=== PATIENT | male | born 1955 | race Caucasian/White ===

== ENCOUNTER 2021-07-27 08:38 | Observation (INO) ==
--- NOTE | 2021-07-06 10:53 | PAT Medication Instructions ---
Medication Instructions Date of Service July 06, 2021 Home Medications apixaban 5 mg tablet (Eliquis) 5 mg PO BID aspirin 81 mg tablet,delayed release 81 mg PO QAM atorvastatin 10 mg tablet 10 mg PO PM cholecalciferol (vitamin D3) 125 mcg (5,000 unit) tablet (Vitamin D3) 125 mcg PO QAM cyanocobalamin (vitamin B-12) 100 mcg tablet (Vitamin B-12) 100 mcg PO QAM glucosamine sulf dipot chlr,msm,chond 550 mg-C 30 mg-carrington 1 mg capsule (Glucosamine Chondroitin) 1 cap PO BID omega-3 fatty acids 1,000 mg PO QAM sotalol 160 mg tablet 80 mg PO BID ASK your prescriber and surgeon apixaban 5 mg tablet (Eliquis) 5 mg PO BID (in order for spinal or epidural anesthesia, Eliquis needs to be stopped 72 hours/3 days before surgery. Please check if okay with doctor that prescribes this to you) STOP taking 2 weeks before surgery glucosamine sulf dipot chlr,msm,chond 550 mg-C 30 mg-carrington 1 mg capsule (Glucosamine Chondroitin) 1 cap PO BID omega-3 fatty acids 1,000 mg PO QAM DO NOT take the morning of surgery cholecalciferol (vitamin D3) 125 mcg (5,000 unit) tablet (Vitamin D3) 125 mcg PO QAM cyanocobalamin (vitamin B-12) 100 mcg tablet (Vitamin B-12) 100 mcg PO QAM Take morning of surgery With a small sip of water, OTHERWISE NOTHING TO EAT OR DRINK AFTER MIDNIGHT: aspirin 81 mg tablet,delayed release 81 mg PO QAM sotalol 160 mg tablet 80 mg PO BID Take evening before surgery atorvastatin 10 mg tablet 10 mg PO PM sotalol 160 mg tablet 80 mg PO BID Other Notes If you have any questions please call us at [phone] or [phone] or [phone] or [phone]
--- NOTE | 2021-07-12 08:47 | Anesthesiology Consultation ---
Date of Service July 12, 2021 Assessment & Plan (1) Encounter for pre-operative examination: - cardiology : "...history of atrial fib/flutter who was seen by Dr. Lynch in September...2020 with increased symptoms...work-up and was put on sotalol...has not had sustained atrial arrhythmia since that time...EKG today shows sinus bradycardia VR 55 otherwise normal QTc 420 ms. Tolerating medications well, reasonably active...no evidence of atrial fib since on sotalol...heart rate is 55 and he does complain of mild fatigue however is comfortable enough and has symptoms in A. Fib. We will keep sotalol at 80 mg twice daily and continue apixaban...He should be considered low risk for upcoming knee replacement surgery..." - Outpatient joint assessment: Patient is currently scheduled for inpatient pathway. If re-evaluated pending system levels during current pandemic/surgeon requests outpatient pathway, patient expressed would be staying overnight. - foot sensitivity: pt reports sensitivity to feet being touched, denies neur opathy/pain/injury. He states this is chronic, does fine if knows before feet are touched. Noted on OR sheet. - COVID screening: Per assessment on 07/12/2021: Travel screen negative, no known COVID-19 positive contacts or current COVID-19 related symptoms in past 2 weeks. Patient vaccinated. Surgeon arranging preop COVID testing, scheduled 07/25/2021. Awaiting results. Chart Review Chart Review: Acceptable Risk for Surgery and Patient seen in Pre Admission Testing Teaching & Discussion Pre-Anesthesia Teaching/Discussion Notes: Instructed NPO after midnight before surgery, except medications with 15 cc of water. Medication instructions provided according to the PAT guidelines. History Surgery Operation Date: 07/27/21 11:10 Proposed Procedures p Right Total Knee Arthroplasty - Maykel Muse MD Height/Weight Height: 5 ft 9 in Weight: 96.1 kg Allergies Allergy/AdvReac Type Severity Reaction Status Date / Time No Known Allergies Allergy Verified 07/06/21 09:03 Medications Home Medications Medication Instructions Recorded Confirmed Last Taken apixaban 5 mg tablet (Eliquis) 5 mg PO BID 07/06/21 07/06/21 Unknown aspirin 81 mg tablet,delayed 81 mg PO QAM 07/06/21 07/06/21 Unknown release atorvastatin 10 mg tablet 10 mg PO PM 07/06/21 07/06/21 Unknown cholecalciferol (vitamin D3) 125 125 mcg PO QAM 07/06/21 07/06/21 Unknown mcg (5,000 unit) tablet (Vitamin D3) cyanocobalamin (vitamin B-12) 100 100 mcg PO QAM 07/06/21 07/06/21 Unknown mcg tablet (Vitamin B-12) glucosamine sulf dipot 1 cap PO BID 07/06/21 07/06/21 Unknown chlr,msm,chond 550 mg-C 30 mg-carrington 1 mg capsule (Glucosamine Chondroitin) omega-3 fatty acids 1,000 mg PO QAM 07/06/21 07/06/21 Unknown sotalol 160 mg tablet 80 mg PO BID 07/06/21 07/06/21 Unknown Past Medical History Medical History A-fib on [facility]; follows with [facility] DJD (degenerative joint disease) HLD (hyperlipidemia) Osteoarthritis Scoliosis Patient denies h/o stroke, seizures, heart attack, heart failure, DM, HTN, blood clots or blood transfusions. Exercise / Class Metabolic Activity II 4-5 Yardwork/Stairs/Walk up hill (denies CP or SOB with 1 FOS) Past Family History Family History Mother Slow to wake up after anesthesia Past Surgical History Surgical History History of bunionectomy BL History of colonoscopy History of tonsillectomy S/P orchiopexy Past Anesthesia History No Hx of Anesthesia Complications and Other (mother slow to wake, did not require re-intubation) History of PONV No Hx of PONV and Hx of Motion Sickness Social History Smoking Status: Former smoker tobacco type: cigarettes and smokeless tobacco Do You Dip or Chew Tobacco: No (quit 1995) Smoking End Date: 1975 Hx Alcohol Use: Yes alcohol intake frequency: holidays/special occasions only Hx Substance Use: No substance use type: does not use Review of Systems Snoring, denies witnessed apneas or sleep studies. Occasional reflux if bent over extended time. Occasional palpitations, denies dizziness or lightheadedness. Patient denies chest pain, shortness of breath, dyspnea on exertion, fever, chills, cough, or wheezing. Physical Exam Vital Signs Vitals BP 128/78 P 55 TEMP 98.7 SP02 96% on RA RESP 17 Physical Full cervical extension range of motion without pain Full TMJ range of motion TMD 3.5 finger breaths Mallampati Score 2 Dentition: intact, one missing left upper tooth; denies missing, loose or chipped teeth, caps/crowns, implants or bridges Lungs: normal respiratory effort. Clear throughout to auscultation, no adventitious breath sounds Cardiac: regular rate and rhythm, no murmurs noted Carotid arteries: negative bruit bilat Extremities: no distal extremity edema Lab Results Anesthesia Preop Results Results Anesthesia Widget: WBC 6.01 K/uL (4.8-10.8) 07/12/21 Hgb 15.6 g/dL (14.0-18.0) 07/12/21 Hct 45.0 % (42-52) 07/12/21 Plt 209 K/uL (130-400) 07/12/21 Na 138 mmol/L (136-145) 07/12/21 K 4.2 mmol/L (3.5-5.1) 07/12/21 Cl 106 mmol/L (98-107) 07/12/21 CO2 27 mmol/L (21-32) 07/12/21 BUN 18 mg/dl (6-23) 07/12/21 Creat 0.83 mg/dl (0.6-1.4) 07/12/21 Glucose Level 101 mg/dl (70-99(Fasting)) H 07/12/21 PT 10.3 Seconds (9.0-12.0) 07/12/21 PTT 30.6 Seconds (21.0-31.0) 07/12/21 INR 1.0 (0.9-1.1) 07/12/21 Urine Color Yellow 07/12/21 Urine Appearance Clear (Clear) 07/12/21 Urine pH 5.0 (4.5-7.5) 07/12/21 Urine Specific [place] 1.019 (1.000-1.030) 07/12/21 Urine Protein Negative (Negative) 07/12/21 Urine Glucose (UA) Negative (Negative) 07/12/21 Urine Ketones Negative (Negative) 07/12/21 Urine Blood Negative (Negative) 07/12/21 Urine Nitrite Negative (Negative) 07/12/21 Urine Bilirubin Negative (Negative) 07/12/21 Urine Urobilinogen Negative (Negative) 07/12/21 Urine Leukocyte Esterase Negative (Negative) 07/12/21 Blood Type O Positive 07/12/21 Antibody Screen NEGATIVE 07/12/21 Testing Electrocardiogram Date: 07/12/21 Poor data quality Sinus bradycardia, rate 55 bpm Rightward axis Nonspecific ST and T wave abnormality Chest X-Ray Date: 07/12/21 FINDINGS: Frontal and lateral radiographs of the chest demonstrate the cardiomediastinal silhouette to be within normal limits. The lungs are clear of alveolar opacities. There is no evidence for effusion bilaterally. There is no evidence for vascular congestion. There is no acute osseous pathology. IMPRESSION: No acute cardiopulmonary disease. Echocardiogram Date: 09/09/20 Mild asymmetric septal hypertrophy EF 60-65% Moderately enlarged right ventricle Moderately dilated left atrium Mild tricuspid regurgitation Mild pulmonary hypertension estimated right ventricular/pulmonary artery systolic pressure of 34.97 mmHg Stress Test Date: 10/04/20 exercise MPHR 85% Negative for ischemia
--- NOTE | 2021-07-13 21:36 | History & Physical Report ---
Date of Service July 13, 2021 Assessment & Plan (1) Right knee DJD: Plan: Postoperative prescriptions for Percocet and Coumadin will be provided at discharge from the hospital. Anticipate discharge to home with home health services. The patient has already seen his PCP and sampler pickup for medical clearance. He has already seen the [facility] and been instructed to stop his Eliquis 3 days prior to surgery. We will restart it the morning after surgery. PDMP was checked and there are no concerning findings. The patient already has a walker and cane. Option of outpatient total joint was discussed with him. Given his cardiac history, he thinks that admission is his best option. Call with any other concerns. He has already seen PAT today for his preoperative testing. COVID-19 nasal swab prescription was provided. He will obtain this 2 days prior to surgery. He is aware of the COVID-19 risks associated with surgery. He is currently asymptomatic of any COVID-19 symptoms. History of Present Illness Chief Complaint: Right knee pain Primary Care Provider: NO PCP This 65-year-old male presents with his , for his preoperative history and physical. He is scheduled to undergo a right knee total knee arthroplasty on 07/27/2021. The patient has a longstanding history of bilateral knee pain. Right is worse than left. He is having difficulty with ambulation. Pain is worse with weightbearing. It is affecting his ADLs. He notes he has lost some motion. He is noticing a bowing to his leg that seems to be getting worse with time. No other complaints. Allergies Allergy/AdvReac Type Severity Reaction Status Date / Time No Known Allergies Allergy Verified 07/06/21 09:03 Home Medications Medication Instructions Recorded Confirmed Type apixaban 5 mg tablet (Eliquis) 5 mg PO BID 07/06/21 07/06/21 History aspirin 81 mg tablet,delayed 81 mg PO QAM 07/06/21 07/06/21 History release atorvastatin 10 mg tablet 10 mg PO PM 07/06/21 07/06/21 History cholecalciferol (vitamin D3) 125 125 mcg PO QAM 07/06/21 07/06/21 History mcg (5,000 unit) tablet (Vitamin D3) cyanocobalamin (vitamin B-12) 100 100 mcg PO QAM 07/06/21 07/06/21 History mcg tablet (Vitamin B-12) glucosamine sulf dipot 1 cap PO BID 07/06/21 07/06/21 History chlr,msm,chond 550 mg-C 30 mg-carrington 1 mg capsule (Glucosamine Chondroitin) omega-3 fatty acids 1,000 mg PO QAM 07/06/21 07/06/21 History sotalol 160 mg tablet 80 mg PO BID 07/06/21 07/06/21 History Past Med/Surg History Medical History A-fib on eliquis; follows with [facility] Cardiology DJD (degenerative joint disease) HLD (hyperlipidemia) Osteoarthritis Scoliosis Surgical History History of bunionectomy BL History of colonoscopy History of tonsillectomy S/P orchiopexy Family History (Updated 07/13/21 @ 21:32 by Omari Segovia PA-C) Mother Slow to wake up after anesthesia Other Cancer Social History (Updated 07/13/21 @ 21:35 by Omari Segovia PA-C) Smoking Status: Former smoker Second Hand Exposure: No; Hx Alcohol Use: Yes Hx Substance Use: No Preferred Language: Indian Communication Ability: Effective Supervisor Pig Machine Required: No Beliefs That Will Affect Care: None marital status: Current Living Situation: Spouse current occupational status: employed current occupation: general road supervisor Feels Safe at Home: Yes Assistive Devices: Glasses Review of Systems Review of Systems: All systems reviewed & are unremarkable except as noted in HPI & below A total of 10 systems were reviewed. Physical Exam Physical Exam: Vitals: Height 174.5 cm, weight 94.6 kilograms, BMI 31.1, temperature 36.1, BP 120/70, pulse 59, O2 sat 98% on room air, respirations 18. General: Well-developed, well-nourished, elderly white male in no acute distress. Sitting in a chair. Alert and oriented. Skin: Warm and dry with good turgor. No rashes or lesions. No ecchymosis or erythema. No intra-articular effusion in the right knee. HEENT: Normocephalic, atraumatic. Eyes: PERRLA, EOMI. Nares and oropharynx exams deferred due to COVID precautions. Heart: RRR. No MGR. Lungs: Clear to auscultation bilaterally. No crackles, rhonchi or wheezing. Good air movement. Abdomen: Bowel sounds present x4. Soft, nontender. No organomegaly. No masses. Musculoskeletal: Right knee evaluation reveals varus positioning. He has focal discomfort with palpation over the medial and lateral joint lines. He lacks about 5-8 degrees of terminal extension. Flexion to greater than 100 degrees. Strength is 5/5 with good quad tone. No defect in the patellar tendon or quadriceps tendon. Pseudolaxity of the MCL. Normal LCL. Neurologic: Gross sensation is intact across both lower extremities by soft touch. Peripheral pulses are 2+. Results & Data Results & Data ([facility]) Diagnostic Findings Radiographic imaging previously obtained shows end-stage DJD of the right knee. Medial compartment is [id number]. Joint space narrowing, periarticular osteophytes and sclerosis are all evident. Code Status & VTE Plan VTE Prophylaxis Plan VTE Prophylaxis will be ordered: Yes
--- NOTE | 2021-07-27 06:21 | History & Physical Bridge Note ---
Date of Service July 27, 2021 History & Physical Bridge Note I have examined the patient, reviewed the History & Physical and in the interval since the performance of the History & Physical I have noted the following changes of clinical significance:consent obtained/site verified/covid screen negative. no changes noted
[~2021-07-27 08:38] MED LIST: BUPIVACAINE 0.5 % 5 MG/1 ML PF 10ML VIAL ONE; LR 500ML BOLUS, THEN 15ML/HR IV SCH; LR 60ML/HR IV SCH; ROPIVACAINE 0.5% HCL/PF 150 MG, BUPIVACAINE 0.75% MPF 20 ML, EPINEPHrine 0.15 MG, Ketor... INFIL SCH; TRANEXAMIC ACID 1,000 MG x 1 **For Topical Use TOP SCH; ceFAZolin 2000MG 2,000 MG/15 ML SYR IV SCH
[2021-07-27] MEDS ORDERED: LIDOCAINE 2% 2 ML VIAL/AMP(20MG/ML) INFIL ONE (10:03)
[2021-07-27] MEDS ORDERED: PROPOFOL IV EMULSION 10 MG/ML 20 ML VIAL IV ONE (10:03)
[2021-07-27] MEDS ORDERED: MIDAZOLAM HCL 1 MG/ML 2ML VIAL ONE (10:03)
[2021-07-27] MEDS ORDERED: ONDANSETRON INJ 2 MG/ML 2 ML VIAL ONE (10:03)
[2021-07-27] MEDS ORDERED: fentaNYL citrate 100 MCG/2 ML VIAL IV PRN (10:51)
[2021-07-27] MEDS ORDERED: ONDANSETRON INJ 2 MG/ML 2 ML VIAL IV PRN ×2 (10:51→14:43)
[2021-07-27] MEDS ORDERED: ATROPINE SULFATE 0.1 MG/ML 10ML SYR IV PRN (10:51)
[2021-07-27] MEDS ORDERED: HYDROmorphone INJ 2 MG/ML SYR/VIAL IV PRN (10:51)
[2021-07-27] MEDS ORDERED: ePHEDrine sulfate 50 MG/ML AMP IV PRN (10:51)
[2021-07-27] MEDS ORDERED: ORTHO JOINT ANESTHETIC ONE (11:19)
[2021-07-27] MEDS ORDERED: KETAMINE 50 MG/5 ML SYRINGE ONE (11:40)
[2021-07-27] MEDS ORDERED: ePHEDrine sulfate 50 MG/ML AMP ONE (11:52)
--- NOTE | 2021-07-27 13:04 | Post Operative Brief Note ---
Immediate Post Op Note v1 Date of Surgery July 27, 2021 Pre & Post Diagnosis Operation Date: 07/27/21 11:10 Pre-Op Diagnosis: Degenerative Joint Disease Right Knee Post-Op Diagnosis: Degenerative Joint Disease Right Knee I identified the patient and participated in the time-out.: Yes Procedure Operation Date: 07/27/21 11:10 Actual Procedures p Right Total Knee Arthroplasty(Right) - Maykel Muse MD Surgeon Maykel Muse MD Loan Review Manager [facility] Estimated Blood Loss 75 Findings Consistent with Post-Op Diagnosis
--- NOTE | 2021-07-27 13:14 | Operative Report ---
Post Operative Report Pre & Post Diagnosis Operation Date: 07/27/21 11:10 Pre-Op Diagnosis: Degenerative Joint Disease Right Knee Post-Op Diagnosis: Degenerative Joint Disease Right Knee I identified the patient and participated in the time-out.: Yes Procedure Operation Date: 07/27/21 11:10 Actual Procedures p Right Total Knee Arthroplasty(Right) - Maykel Muse MD Surgeon CYRUS Muse MD Plumbing Contractor Juliette DE OLIVEIRA Estimated Blood Loss 75 Findings Consistent with Post-Op Diagnosis see operative report Specimens see operative report Drains none Complications none Disposition Accompanied Patient To Recovery: Yes Indications This 65-year-old male presented to the office with complaints of persisting right knee pain. He had tried conservative care measures without improvement. He elected to proceed with surgical intervention after being educated about potential risks and outcomes. Preoperative imaging was obtained. Description of Procedure Patient was administered a spinal anesthetic and then taken to the operating room where he was given sedation. He was prepped and draped in the usual sterile fashion. Please see Dr. Muse's operative report for specifics of the procedure. I was present for the entire case from initial patient positioning through final wound closure. Assistance was provided in tissue retraction, hemostasis, trial implant placement, final implant placement, and final wound closure. Patient was taken to the recovery room in satisfactory condition. I attest to the content of the Intraoperative Record and any orders documented therein. Any exceptions are noted below.
--- NOTE | 2021-07-27 13:26 | Operative Report (OR) ---
DATE OF PROCEDURE: 07/27/2021. SURGEON: Maykel Muse MD. PACKING HOUSE SUPERVISOR: Omari Segovia PA-C. No resident or fellow available. PREOPERATIVE DIAGNOSIS: Osteoarthritis, right knee, with varus flexion deformity. POSTOPERATIVE DIAGNOSIS: Osteoarthritis, right knee, with varus flexion deformity, right knee. OPERATION PERFORMED: Cemented right total knee replacement. SUMMARY OF IMPLANTS: Size 4 right femur posterior cruciate substituting, size 4 mobile bearing tray, size 41 patella, size 4 x 10 mm insert, 2 bags of Palacos G cement posterior cruciate substituting t echnique. TOURNIQUET TIME: 50 minutes. PERIOPERATIVE SITUATION: Medically cleared male with intractable knee pain, has a varus flexion defo rmity, has end-stage disease. 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 This is i n the tibia. DESCRIPTION OF PROCEDURE: The patient was appropriately identified, site verified, consent verified. Antibiotics were confirmed as being given. The right lower extremity was prepped and draped in the usual routine fashion. Tourniquet was inflated to 300 mmHg after exsanguination of the limb with a rubber Esmarch bandage for a total of 50 minutes. Midline exposure was utilized. He had an old ante romedial incision. This was not involved with this incision. Full thickness flaps raised. There wa s a defect in the capsule in that area as a result of previous incision. Parapatellar arthrotomy performed. Patella everted. Appropriate releases performed. Tibia was subl uxated, menisci resected. Cruciates resected. Tibia was subluxated. Distal femur entered. Distal femur resected 14 mm, proximal tibia 4 mm, the extension gap was excellent. Femur was then sized to between a 5 and a 4, was measured 5, cut 4. There was no notching. The flexion gap was checked, it was excellent. The box cut was then made. A size 4 fit well. Tibia was broached and reamed to a si ze 4. The area of the sclerosis from the infarct was a little bit firm, but I was able to get throug h nice and easily. Size 4 trial fit well with a 10 mm spacer, the knee was stable in full flexion, full extension and mi d range flexion. The patella tracked well. The patella was resected leaving 16 mm, size 41 trial wa s seated, it tracked well. All trial implants were then removed. The Orthomix was injected prior to that and then once all the implants were removed, the TXA was applied for 3 minutes. The wound was then irrigated and the permanent cemented in position -- tibia, femur, and patella in that order. At 12 minutes, the tourniquet was deflated. Minor bleeding points were controlled with electrocautery. Roughly 75 mL of blood loss total. The wound was then irrigated one final time. The trial spacer removed. Permanent spacer seated. Th e knee reduced and closed at 30-40 degrees of flexion with #2 Vicryl, 2-0 Vicryl and stainless steel clips. Appropriate dressing applied. The patient was transferred to recovery room in satisfactory c ondition, having tolerated the procedure well. It should be mentioned that the area of the defect in the capsule was closed with fascia. A fascial flap was created. This closed it nicely. Appropriat e dressing applied. The patient was transferred to recovery room in satisfactory condition, having t olerated the procedure well. DVT prophylaxis per protocol. Job ID: [id number]
--- NOTE | 2021-07-27 13:41 | XRay Report ---
XR knee RT 1 or 2V routine CLINICAL HISTORY: S/P R TKA COMPARISON: Knee radiographs September 29, 2020. FINDINGS: Alignment of the total right knee arthroplasty is anatomic. There is no periprosthetic fra cture or unexpected radiopaque foreign body. There are skin nanci. IMPRESSION: Expected findings following total right knee arthroplasty. ACT 112: Negative or not required by law. Electronically signed by: Nikhil Causey M.D. 07/27/2021 1:39 PM
--- NOTE | 2021-07-27 13:44 | Progress Notes ---
SUBJECTIVE: Postop check status post right total knee replacement. The patient is doing well. Tavon es chest pain, shortness of breath, fever, chills, nausea, vomiting or headache. OBJECTIVE: VITAL SIGNS: Stable. He is afebrile. Neurovascular check limited by spinal block still being in place. Postop x-rays look excellent. ASSESSMENT AND PLAN: Doing well. Continue with postoperative care pathway. Discharge home tomorrow if he does well overnight. Job ID: [id number]
--- NOTE | 2021-07-27 13:50 | Discharge Summary (DS) ---
DATE OF ADMISSION: 07/27/2021. DATE OF DISCHARGE: 07/28/2021. CHIEF COMPLAINT: Right knee pain. HISTORY OF PRESENT ILLNESS: Underwent elective right total knee replacement. Hospital course has be en uneventful to this point. Postop x-rays look excellent. Chronic pain that failed conservative management for decades. X-rays reveal end-stage disease. PREADMISSION MEDICATIONS: Include apixaban 5 mg b.i.d., aspirin 81 mg daily, atorvastatin 10 mg, vit andrews D, vitamin B, glucosamine, [place], and sotalol 80 mg b.i.d. PAST MEDICAL HISTORY/PAST SURGICAL HISTORY: Remarkable for AFib on Eliquis, DJD, hyperlipidemia, ost eoarthritis, scoliosis. History of bunionectomy, history of colonoscopies, tonsillectomy, orchiopexy. SOCIAL HISTORY: Reveals he is , former smoker. Social alcohol use. Lives with his spouse. 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 Feels safe at home. Wears glasses. REVIEW OF SYSTEMS: Reveals no chest pain, shortness of breath, fever, chills, nausea, vomiting or he adache. Postoperative x-rays look excellent. ASSESSMENT: Doing well status post right total knee replacement. Deep venous thrombosis prophylaxis with his Eliquis. He will start that 24 hours postop. Job ID: [id number]
--- NOTE | 2021-07-27 13:55 | Anesthesiology Progress Note ---
Date of Service July 27, 2021 Anesthesia Post Procedure Vital Signs Vital Signs: Temp Pulse Pulse Resp BP BP Pulse Ox 07/27/21 13:45 53 L 14 110/70 95 07/27/21 13:35 43 L 14 118/72 98 07/27/21 13:25 45 L 16 121/73 99 07/27/21 13:16 97.0 F L 49 L 12 126/75 97 07/27/21 09:18 97.5 F L 53 L 20 148/86 H 97 Pain Intensity Right Knee: Pain Intensity: 1 Transfer of Care Handoff Completed per policy Notes Mental Status: alert / awake / arousable and participated in evaluation Patient Amnestic to Procedure: Yes Nausea / Vomiting: adequately controlled Pain: adequately controlled Airway Patency, RR, SpO2: stable & adequate BP & HR: stable & adequate Hydration State: stable & adequate Neuraxial Anesthesia: was administered and sensory block is resolving Anesthetic Complications: no major complications apparent and Pt Satisfied with anesthetic care
[2021-07-27] MEDS ORDERED: MAGNESIUM HYDROXIDE SUSP 30 ML UDC PO PRN (14:43)
[2021-07-27] MEDS ORDERED: oxyCODONE HCL IR 5 MG TAB (IMMEDIATE RELEASE) PO PRN (14:43)
[2021-07-27] MEDS ORDERED: bisacodyL 10 MG SUPP PR PRN (14:43)
[2021-07-27] MEDS ORDERED: NALOXONE HCL 0.4 MG/1 ML VIAL/CARP IV PRN (14:43)
[2021-07-27] MEDS ORDERED: METOCLOPRAMIDE HCL INJ 5 MG/ML 2 ML VIAL IV PRN (14:43)
[2021-07-27] MEDS ORDERED: HYDROmorphone INJ 0.5 MG/0.5 ML SYR IV PRN (14:43)
[2021-07-27] MEDS ORDERED: ALUMINUM/MAGNESIUM SUSP 30 ML UDC PO PRN (14:43)
[2021-07-27] MEDS ORDERED: TAMSULOSIN HCL 0.4 MG CAP PO PRN (14:43)
[2021-07-27] MEDS ORDERED: diphenhydrAMINE 50 MG/ML VIAL IV PRN (14:43)
[2021-07-27] MEDS: SODIUM CHLORIDE 0.9% 1000ML 1,000 ML IV SCH (15:28)
[2021-07-27] MEDS: KETOROLAC TROMETHAMINE 15 MG/ML VIAL IV SCH ×2 (15:30→21:10)
[2021-07-27] MEDS: ACETAMINOPHEN 500 MG TAB PO SCH ×2 (15:30→20:55)
[2021-07-27] MEDS: FERROUS GLUCONATE 324 MG TAB PO SCH (20:50)
[2021-07-27] MEDS: ASCORBIC ACID 500 MG TAB PO SCH (20:51)
[2021-07-27] MEDS: APIXABAN 5 MG TABLET PO SCH (20:52)
[2021-07-27] MEDS: DOCUSATE SODIUM 100 MG CAP PO SCH (20:54)
[2021-07-27] MEDS: SOTALOL HCL 80 MG TAB PO SCH (20:54)
[2021-07-27] MEDS ORDERED: SENNA 8.6 MG TAB PO SCH (21:00)
[2021-07-27] MEDS ORDERED: ATORVASTATIN 10 MG TAB PO SCH (21:00)
[2021-07-27] MEDS: ceFAZolin 2000MG 2,000 MG/15 ML SYR IV SCH (21:10)
[2021-07-28] MEDS: KETOROLAC TROMETHAMINE 15 MG/ML VIAL IV SCH ×2 (01:32→07:52)
[2021-07-28] MEDS: SODIUM CHLORIDE 0.9% 1000ML 1,000 ML IV SCH (01:53)
[2021-07-28] MEDS: ceFAZolin 2000MG 2,000 MG/15 ML SYR IV SCH (05:07)
[2021-07-28] MEDS: ACETAMINOPHEN 500 MG TAB PO SCH (05:08)
[2021-07-28 06:25] LABS: Hematocrit (blood only) 33.2 % (42-52); Hemoglobin 11.6 g/dL (14.0-18.0); Mean Corpuscular Hemoglobin 32.8 pg (25-34); Mean Corpuscular Hgb Conc 34.9 g/dL (32-36); Mean Corpuscular Volume 93.8 fL (80-100); Mean Platelet Volume 10.5 fL (7.4-10.4); Platelet Count 170 K/uL (130-400); RDW Coefficient of Variation 12.9 % (11.5-14.5); RDW Standard Deviation 44.5 fL (36.4-46.3); Red Blood Count 3.54 M/uL (4.7-6.1); White Blood Count 11.86 K/uL (4.8-10.8)
[2021-07-28 06:45] LABS: BUN Creatinine Ratio 17.2 (10-20); Calcium 8.2 mg/dl (8.5-10.1); Creatinine Clr Calc Pharmacy 92.3 ml/min; Est GFR (African American) 103.5 ml/min; Est GFR (Non-African American) 89.3 ml/min; Potassium 4.5 mmol/L (3.5-5.1)
--- NOTE | 2021-07-28 07:13 | Progress Notes ---
SUBJECTIVE: Postop day #1 status post right total knee replacement. Did not sleep well, just based on the unfamiliar surroundings, but really did not have much complaint physically. OBJECTIVE: Vital signs are stable. He is afebrile. Neurovascular check femoral sciatic nerve is normal. Hematocrit is stable at 33. Electrolytes pending. ASSESSMENT AND PLAN: His wound is clean, dry and intact. Neurovascular check, femoral sciatic nerve is normal. Can do a straight leg raise. Can do ankle pumps. Sensation grossly normal. He is doin g well. Discharged home today after PT/OT and case management. Resume his normal atrial fibrillatio n anticoagulation. Job ID: [id number]
[2021-07-28] MEDS: FERROUS GLUCONATE 324 MG TAB PO SCH (07:48)
[2021-07-28] MEDS: DOCUSATE SODIUM 100 MG CAP PO SCH (07:48)
[2021-07-28] MEDS: SOTALOL HCL 80 MG TAB PO SCH (07:49)
[2021-07-28] MEDS: ASCORBIC ACID 500 MG TAB PO SCH (07:49)
[2021-07-28] MEDS: APIXABAN 5 MG TABLET PO SCH (07:50)
[2021-07-28] MEDS ORDERED: dexAMETHasone 10 MG in SYRINGE 0 ML IV SCH (08:00)
[2021-07-28] MEDS ORDERED: MULTIVITAMIN TAB PO SCH (09:00)
[2021-07-28] MEDS ORDERED: ASPIRIN 81 MG ECTAB PO SCH (09:00)
[2021-07-28] MEDS ORDERED: CYANOCOBALAMIN (B-12) 100 MCG TABLET PO SCH (09:00)
[2021-07-28] MEDS ORDERED: CHOLECALCIFEROL 5,000 UNITS 125 MCG TAB PO SCH (09:00)
--- NOTE | 2021-07-28 10:28 | Orthopedic Progress Note ---
Date of Service July 28, 2021 Assessment & Plan (1) Status post total knee replacement using cement: Plan: Patient's dressings were changed today by me. New pressure dressing was applied. Discharge to home today after PT/OT. He will resume his Eliquis prescription for Percocet was sent to his pharmacy. Continue using the knee immobilizer today and tomorrow, and discontinue on Sunday. Follow-up in the office in 2 weeks as scheduled for staple removal. Written discharge instructions were provided. Call the office with any other questions/concerns. Admission and Anticipated Discharge Date Admission Date: July 27, 2021 Subjective This 65-year-old male is seen today in his room. He states he did not sleep well last night. He believes that the room was too bright and there was too much commotion in the [place]. He states it had nothing to do with his knee. He has more discomfort over the area of the tourniquet than he does in his actual knee. Pain control is currently adequate. He feels ready for discharge to home. He denies any chest pain, shortness of breath, nausea, vomiting, or abdominal pain. Review of Systems Review of Systems: Unchanged from yesterday Physical Exam Physical Exam: General: Well-developed, well-nourished, elderly white male, in no acute distress. Sitting in bed. Alert and oriented. Conversive. Skin: Postsurgical dressing is in place on the right leg. Upon removal, he has considerable dried blood on the inner dressings. There is no active bleeding from his knee at this point. Expected postoperative edema. No ecchymosis. [place] are intact. Wound edges are well approximated. Musculoskeletal: Patient has intact motor function of his knee and ankle. He is able to perform a straight leg raise. Full terminal extension. Flexion to around 45 degrees easily. Neurologic: Gross sensation is intact across the right leg by soft touch. Peripheral pulses are 2+. Results & Data ([facility]) Vital Signs (Past 12 Hours) Vital Signs Temp Pulse Pulse Resp BP Pulse Ox 07/28/21 07:39 36.7 C 54 L 16 105/62 90 07/28/21 03:17 36.5 C 56 L 16 101/63 91 Laboratory Results CBC obtained today shows a white count of 11.86, H&H of 11.6 and 33.2. PRP is unremarkable.
--- NOTE | 2021-07-30 10:32 | Discharge Summary (DS) ---
DATE OF ADMISSION: 07/27/2021 DATE OF DISCHARGE: 07/28/2021 Discharge summary was completed and dictated on 07/27/2021 and he was discharged on 07/28/2021. Job ID: [id number]
== END 2021-07-28 12:03 | disposition home or self-care (01) ==
LOC: PACUINP 08:38 → ASU 08:38 → 3N 15:10

== ENCOUNTER 2025-05-13 05:25 | Inpatient (IN) ==
--- NOTE | 2025-04-08 13:36 | PAT Medication Instructions ---
Medication Instructions Date of Service April 08, 2025 Home Medications apixaban 5 mg tablet (Eliquis) 5 mg PO BID aspirin 81 mg tablet,delayed release 81 mg PO QAM atorvastatin 10 mg tablet (Lipitor) 10 mg PO HS sotalol 160 mg tablet 80 mg PO BID cyanocobalamin (vitamin B-12) 500 mcg tablet (Vitamin B-12) 1,000 mcg PO QAM glucosamine sulf dipot chlr,msm,chond 550 mg-C 30 mg-carrington 1 mg capsule (Glucosamine Chondroitin) 2 cap PO DAILY omega-3 fatty acids 3 cap PO DAILY polyethylene glycol 3350 17 gram/dose oral powder (Miralax) 17 g PO BID ASK your prescriber and surgeon apixaban 5 mg tablet (Eliquis) 5 mg PO BID (From anesthesia perspective, apixaban/Eliquis is requested to be stopped 72 hours/3 days before surgery. Please check if okay with doctor that prescribes this to you) aspirin 81 mg tablet,delayed release 81 mg PO QAM STOP taking 2 weeks before surgery (or as soon as possible if surgery is within 2 weeks) glucosamine sulf dipot chlr,msm,chond 550 mg-C 30 mg-carrington 1 mg capsule (Glucosamine Chondroitin) 2 cap PO DAILY omega-3 fatty acids 3 cap PO DAILY DO NOT take the morning of surgery cyanocobalamin (vitamin B-12) 500 mcg tablet (Vitamin B-12) 1,000 mcg PO QAM polyethylene glycol 3350 17 gram/dose oral powder (Miralax) 17 g PO BID Take morning of surgery With a small sip of water, OTHERWISE NOTHING TO EAT OR DRINK AFTER MIDNIGHT: sotalol 160 mg tablet 80 mg PO BID Take evening before surgery atorvastatin 10 mg tablet (Lipitor) 10 mg PO HS sotalol 160 mg tablet 80 mg PO BID polyethylene glycol 3350 17 gram/dose oral powder (Miralax) 17 g PO BID Other Notes If you have any questions please call us at [phone] or [phone] or [phone] or [phone]
--- NOTE | 2025-04-17 10:56 | Anesthesiology Consultation ---
Date of Service April 17, 2025 Assessment & Plan (1) Encounter for pre-operative examination: - Eliquis/Apixaban instructions: patient made aware that for neuraxial anesthesia, Eliquis/Apixaban needs to be held 72 hours prior to surgery. Patient voiced understanding/will check if okay with prescriber. - Infectious disease screening: Per assessment on 04/17/25- No known recent infectious disease contacts or current infectious disease symptoms. - Outpatient joint assessment: Pt currently scheduled for inpatient pathway. If surgeon requests review for outpatient joint pathway, patient is not a recommended candidate for outpatient joint program from anesthesia standpoint based on available information. - S/P Right TKA 07/27/21: SAB + regional at [facility]. Per patient, had Hiccups 25/12 for 2 weeks after total knee surgery 2021. Notes that with last 2.5 days of this 2 week period, severe vomiting until he got medication from [facility]; BP also dropped "really low" after this surgery, "BP medication was put on hold" - Per patient, preop PCP and cardiac clearances are being requested by surgeon; scheduled for PCP preop appt and he states that surgeon is "checking with cardio" regarding obtaining clearance. Awaiting surgeon-ordered PCP ([facility], appt 04/21) and cardiology ([facility] cardio; surgeon office to coordinate/obtain per patient) preop clearances. Patient is otherwise acceptable risk for surgery. Chart Review Chart Review: Patient seen in Pre Admission Testing Teaching & Discussion Pre-Anesthesia Teaching/Discussion Notes: Instructed NPO after midnight before surgery,except medications with 15 cc of water. Medication instructions provided according to the PAT guidelines. History Surgery Operation Date: 05/13/25 09:20 Proposed Procedures p Left Total Knee Arthroplasty - Maykel Muse MD Height/Weight Height: 5 ft 9 in Weight: 89.8 kg Allergies Allergy/AdvReac Type Severity Reaction Status Date / Time No Known Allergies Allergy Verified 04/08/25 12:13 Medications Home Medications Medication Instructions Recorded Confirmed Last Taken apixaban 5 mg tablet (Eliquis) 5 mg PO BID 07/06/21 04/08/25 07/23/21 19:00 aspirin 81 mg tablet,delayed 81 mg PO QAM 07/06/21 04/08/25 07/27/21 06:30 release atorvastatin 10 mg tablet (Lipitor) 10 mg PO HS 07/06/21 04/08/25 07/26/21 21:00 sotalol 160 mg tablet 80 mg PO BID 07/06/21 04/08/25 07/27/21 06:30 cyanocobalamin (vitamin B-12) 500 1,000 mcg PO QAM 04/08/25 04/08/25 Unknown mcg tablet (Vitamin B-12) glucosamine sulf dipot 2 cap PO DAILY 04/08/25 04/08/25 Unknown chlr,msm,chond 550 mg-C 30 mg-carrington 1 mg capsule (Glucosamine Chondroitin) omega-3 fatty acids 3 cap PO DAILY 04/08/25 04/08/25 Unknown polyethylene glycol 3350 17 17 g PO BID 04/08/25 04/08/25 Unknown gram/dose oral powder (Miralax) Past Medical History Medical History A-fib Taking Eliquis Follows with [facility] DJD (degenerative joint disease) HLD (hyperlipidemia) Hx Inguinal hernia B/L Osteoarthritis Scoliosis Exercise / Class Metabolic Activity II 4-5 Yardwork/Stairs/Walk up hill (one FS: No CP, no SOB) Past Family History Family History Mother Slow to wake up after anesthesia Other Cancer Past Surgical History Surgical History History of anesthesia reaction Hiccups 24/7 for 2 weeks after total knee surgery 2021. Notes that with last 2.5 days of this 2 week period, severe vomiting until he got medication from [facility]; BP also dropped "really low" after this surgery, "BP medication was put on hold" History of bunionectomy B/L History of colonoscopy History of tonsillectomy History of total right knee replacement (2021) S/P orchiopexy As child S/P surgical amputation of finger Top of left ring finger due to compound fracture Past Anesthesia History Other * Patient: Hiccups 24/7 for 2 weeks after total knee surgery 2021. Notes that with last 2.5 days of this 2 week period, severe vomiting until he got medication from [facility]; BP also dropped "really low" after this surgery, "BP medication was put on hold" * Mother: Slow to wake History of PONV No Hx of Motion Sickness and History of PONV Social History Smoking Status: Former smoker tobacco type: cigarettes and smokeless tobacco Do You Dip or Chew Tobacco: No (Quit 1995) Smoking End Date: Quit (only a couple years while in service) Hx Alcohol Use: Yes alcohol intake frequency: holidays/special occasions only Hx Substance Use: Yes substance use type: former substance user, marijuana () and IV drugs ( occasional) Review of Systems Patient denies chest pain, shortness of breath, dyspnea on exertion, fever, chills, cough, wheezing, palpitations. Physical Exam Vital Signs BP 102/66 P 55 TEMP 97.9 SP02 95%RA RESP 16 Physical Mildly decreased cervical extension range of motion. Full TMJ range of motion. TMD > 3.5 finger breaths Mallampati Score II Dentition: intact, missing molar Lungs: clear throughout to auscultation Cardiac: regular rate and rhythm, no murmurs noted Spine: normal Carotid arteries: negative bruit Extremities: no LE edema Lab Results Anesthesia Preop Results Results Anesthesia Widget: WBC 6.13 K/ul (4.8-10.8) 04/17/25 Hgb 15.4 g/dL (14.0-18.0) 04/17/25 Hct 44.5 % (42.0-52.0) 04/17/25 Plt 197 K/uL (130-400) 04/17/25 Na 139 mmol/L (136-145) 04/17/25 K 4.6 mmol/L (3.5-5.1) 04/17/25 Cl 106 mmol/L (98-107) 04/17/25 CO2 28 mmol/L (21-32) 04/17/25 BUN 18 mg/dl (6-23) 04/17/25 Creat 0.76 mg/dl (0.6-1.4) 04/17/25 Glucose Level 93 mg/dl (70-99(Fasting)) 04/17/25 PT 11.1 Seconds (9.0-12.0) 04/17/25 PTT 31 Seconds (21-31) 04/17/25 INR 1.1 (0.9-1.1) 04/17/25 Urine Color Yellow 04/17/25 Urine Appearance Clear (Clear) 04/17/25 Urine pH 5.5 (4.5-7.5) 04/17/25 Urine Specific Bath 1.022 (1.000-1.030) 04/17/25 Urine Protein Trace (Negative) H 04/17/25 Urine Glucose (UA) Negative (Negative) 04/17/25 Urine Ketones Negative (Negative) 04/17/25 Urine Blood 3+ (Negative) H 04/17/25 Urine Nitrite Negative (Negative) 04/17/25 Urine Bilirubin Negative (Negative) 04/17/25 Urine Urobilinogen Negative (Negative) 04/17/25 Urine Leukocyte Esterase Trace (Negative) H 04/17/25 Urine WBC (Auto) 0-5 /hpf (0-5) 04/17/25 Urine RBC (Auto) >20 /hpf (0-2) H 04/17/25 Urine Hyaline Casts (Auto) 0-2 /lpf (0-2) 04/17/25 Urine Epithelial Cells (Auto) 0-2 /hpf (0-2) 04/17/25 Urine Bacteria (Auto) None Seen (None Seen) 04/17/25 Blood Type O Positive 04/17/25 Antibody Screen NEGATIVE 04/17/25 Testing Electrocardiogram Date: 04/17/25 SB at 46bpm. NS ST/TWA. Poor data quality* Chest X-Ray Date: 04/17/25 FINDINGS: Heart size and pulmonary vasculature are normal. No consolidation or pleural effusion. Stable minimal scarring or atelectasis at the left lung base. Stable scoliosis. IMPRESSION: No acute findings. Echocardiogram Date: 09/09/20 Mild asymmetric septal hypertrophy EF 60-65% Moderately enlarged right ventricle Moderately dilated left atrium Mild tricuspid regurgitation Mild pulmonary hypertension estimated right ventricular/pulmonary artery systolic pressure of 34.97 mmHg Stress Test Date: 10/04/20 exercise MPHR 85% Negative for ischemia
--- NOTE | 2025-05-12 18:14 | History & Physical Bridge Note ---
Date of Service May 12, 2025 History & Physical Bridge Note I have examined the patient, reviewed the History & Physical and in the interval since the performance of the History & Physical I have noted the following changes of clinical significance: Identified site and consent. Left knee marked. Advised concerning DVT PE prophylaxis with medications and needs to comply as well as doing his exercise to prevent arthrofibrosis and stiffness. Also needs to protect this wound to prevent infection. He states he understands.no changes noted
[2025-05-13] MEDS: LR 500ML BOLUS, THEN 15ML/HR IV SCH (05:50)
[2025-05-13] MEDS: LR 60ML/HR IV SCH (06:04)
[2025-05-13] MEDS ORDERED: BUPIVACAINE 0.5 % 5 MG/1 ML PF 10ML VIAL ONE (06:28)
[2025-05-13] MEDS ORDERED: ROPIVACAINE 0.5% 5 MG/ML 30 ML VIAL ONE (06:28)
[2025-05-13] MEDS ORDERED: PROPOFOL IV EMULSION 10 MG/ML 20 ML VIAL IV ONE (06:34)
[2025-05-13] MEDS ORDERED: LIDOCAINE 2% 2 ML VIAL/AMP(20MG/ML) INFIL ONE (06:34)
[2025-05-13] MEDS ORDERED: MIDAZOLAM HCL 1 MG/ML 2ML VIAL ONE (06:35)
[2025-05-13] MEDS: TRANEXAMIC ACID 1,000 MG **IV Pre-op IV SCH (06:38)
[2025-05-13] MEDS ORDERED: GLYCOPYRROLATE 0.2 MG/ML VIAL ONE (07:13)
[2025-05-13] MEDS ORDERED: HYDROmorphone INJ 2 MG/ML SYR/VIAL ONE (07:26)
[2025-05-13] MEDS: ROPIV 0.5% 246mg, Ketorolac 30mg, EPINEPHrine 0.5mg in NSS INFIL SCH (07:30)
[2025-05-13] MEDS: ORTHO JOINT ANESTHETIC ONE (07:31)
--- NOTE | 2025-05-13 08:31 | Post Operative Brief Note ---
Immediate Post Op Note Date of Surgery May 13, 2025 Pre & Post Diagnosis Operation Date: 05/13/25 07:00 <No data on this case meets the specified criteria> Osteoarthritis left knee pre and postop diagnosis same I identified the patient and participated in the time-out.: Yes Procedure Operation Date: 05/13/25 07:00 <No data on this case meets the specified criteria> Cemented left total knee replacement Surgeon Maykel Muse MD [facility] no resident or fellow available Estimated Blood Loss 25 Findings Consistent with Post-Op Diagnosis Severe osteoarthritis medial compartment and medial patellofemoral joint Fluids 1700 Complications None
--- NOTE | 2025-05-13 08:34 | Operative Report ---
Post Operative Report Pre & Post Diagnosis Operation Date: 05/13/25 07:00 <No data on this case meets the specified criteria> Osteoarthritis left knee pre and postop diagnosis the same I identified the patient and participated in the time-out.: Yes Procedure Operation Date: 05/13/25 07:00 <No data on this case meets the specified criteria> Cemented left total knee replacement Surgeon Maykel Muse MD [employer] Straightener [place]te no resident or fellow available Estimated Blood Loss 25 Findings Consistent with Post-Op Diagnosis Severe medial osteoarthritis and medial patellofemoral arthritis Fluids 1700 cc Specimens Bone pathology Drains None Complications None Indications Severe pain failed conservative management Description of Procedure After the patient was appropriate notified site verified consent verified antibiotics confirmed has been given the left lower extremity was prepped and draped use routine fashion. Tourniquet was inflated to 275 mmHg after exsanguination limb with a rubber Esmarch bandage for total of 49 minutes. Midline approach utilized. Parapatellar arthrotomy performed. Synovectomy completed osteophytes resected. Distal femur entered cruciates resected tibia subluxated menisci resected. Distal femur resected 11 mm proximal tibia 4 mm the extension gap was excellent femur was sized to a 7 appropriate cutting block applied the anterior posterior, chamfer cuts made on the flexion gap was excellent. The box cut was made. The posterior capsule was injected with Ortho mix. The tibia was sized to a 6 appropriate tray placed broaching and reaming carried out. With a size 7 mm thick the range of motion was excellent and the stability was excellent. The patella tracked well. The patella was resected leaving 17 mm a 41 button was then seated and tracked well. Ortho mix was then injected all around the knee. All trial elements were then removed knee was then soaked in Irrisept and then irrigated and the permanent cemented into position tibia femur patella in an order at 12 minutes the tourniquet was deflated minor bleeding points controlled electrocautery at 14 minutes the knee was flexed the trial spacer removed no cement removal was required the knee was irrigated 1 final time the permanent liner seated the knee reduced and closed at 40 degrees of flexion using #2 Vicryl 2-0 Vicryl and stainless steel clips. EBL was 25 cc or less crystalloid 1700 cc. Bone pathology pending. X-ray pending. Summary of implants ATT UNE femoral system size size 7 left posterior cruciate substituting 6 rotating platform tray 41 patella 7 x 7 rotating platform insert matching the femur posterior cruciate stabilizing. DVT PE prophylaxis to begin tomorrow. Care pathway for initiation for discharge tomorrow if he does well overnight. I attest to the content of the Intraoperative Record and any orders documented therein. Any exceptions are noted below.
--- NOTE | 2025-05-13 08:35 | Discharge Summary ---
Date of Service May 14, 2025 Admission HPI Per Admitting Provider Osteoarthritis left knee status post left knee replacement cemented Principal Diagnosis Left knee replacement cemented Discharge Data Allergies Allergy/AdvReac Type Severity Reaction Status Date / Time No Known Allergies Allergy Verified 05/13/25 05:44 Vaccinations None Consultations None Procedures Performed Operation Date: 05/13/25 07:00 <No data on this case meets the specified criteria> Cemented left total knee replacement Ordered Studies 05/13/25 05:00 US - OR guided needle placemen Routine Bone pathology x-rays Hospital Course (1) Status post left knee replacement: Total Time Total Time Spent Total Time Spent (In Minutes): 10 Discharge Plan Discharge Items Reason For Visit: Left Knee Degenerative Disease Discharge Diagnosis: Status post cemented left knee replacement Follow-up/Referrals: Omari Segovia PA-C [Physician Call Centre Supervisor] - 05/27/25 PCP,BISI [Physician] - Addtl Attending Provider Instructions: New Medicine: * You will likely be taking one or more of these medications: 1. Percocet - Take, as directed, when you need it, every four to six hours to control your pain. 2. Iron Sulfate - Take 1x each day for the month after surgery to help you replace the blood lost during surgery. 3. Eliquis - Thins your blood to lessen the chance of forming a blood clot. * The most common side effects of pain medicine and iron are nausea and constipation. If nausea or constipation is too much of a problem or if you have any questions about your new medicines or doses, call [facility] at . We will try to help you manage these issues. "VERY IMPORTANT TO READ AND REVIEW" Blood Clots and Blood Thinning Medicine: You will be started on Eliquis after surgery to limit blood clots in your legs. Pain: * The immediate post-operative period after knee replacement surgery is often quite painful. * You are given a prescription for pain medicine. You should take it, as directed, when you need it, especially before physical therapy and before going to bed. Pain that interferes with sleep is very common and can last several months. * You will likely need pain medicine for the first four to six weeks. It will not stop all of the pain. The pain will lessen and as you feel better, you may change to milder pain medicine such as Tylenol. * The most common side effects of pain medicine are nausea and constipation, so don't take more than you need. Physical Therapy: * You will have physical therapy two or three times each week for four to six weeks after your surgery in order to regain your knee range of motion and to retrain your knee to work properly. * It is just as important to make sure you are getting your knee perfectly straight as it is to regain your knee bend. * Taking a pain pill an hour before therapy can help you have a more productive and comfortable therapy session if needed. Home Exercise: * You were shown a series of exercises (heel props, heel slides, etc.) in the hospital. Do these exercises three to four times each day including the exercises you were shown in physical therapy. Walking: * Get up and walk several times each day. For the first four weeks, try not to stand or walk for more than one hour at a time. If you do stand or walk for more than one hour, you will not hurt anything, but your knee and leg will likely swell. * As you feel comfortable, you may change from the walker or crutches to a cane and then to independent walking. SELF CARE INSTRUCTIONS AFTER TOTAL KNEE REPLACEMENT A. You may need to continue a physical therapy program after discharge from the hospital. There are several options available to you. Your doctor will assist you in selecting the best one for you. 1. An out-patient facility 2 to 3 times a week for therapy or home therapy. 2. Continue working on all exercises taught to you in the hospital. Your goals should be to increase bending of your knee to 90 degrees and beyond and to fully straighten your knee. B. You may progress at your own pace from walking with a walker or crutches to a cane; then to no assistive devices. C. Make walking a part of your daily routine. Be up as much as comfortable with rest periods throughout the day. Rest with leg elevation is very important. Use the ice wrap frequently for the first 3-4 weeks. D. There are no restrictions on activities. You may ride in a car, shop, participate in management analyst and all social activities. E. Wear the long elastic stockings (MIK hose) 20 hours a day for six weeks after surgery. They can be removed several times a day for laundering and for a shower. F. Do not place a pillow behind your knee when resting. A pillow at your ankle is okay. G. You may return to previous diet. VERY IMPORTANT TO READ AND REVIEW A. Take Eliquis (blood thinning medication) as directed by your doctor. B. There are a few signs you need to watch for after you are home. Call [facility] if you notice any of the followin. Increased severe knee pain. Some pain is expected especially when you exercise. 2. Increased swelling in your leg or knee; pain or swelling of the calf muscle in either lower leg. 3. Any fluid drainage from the incision. 4. Shortness of breath or chest pain. C. Please call [facility] at if you have any concerns or questions about your operation or recovery. The doctor or his nurse will return your call promptly. D. You must take antibiotics before dental work, bladder, bowel or other surgery. Call the office to obtain a prescription at least 2 days prior to your appointment. * CALL IF INCREASED PAIN, REDNESS, DRAINAGE OR FEVER GREATER THAT 101. * Sutures should be removed 12-14 days after surgery unless you are on chronic steroids, then it will be 14-18 days after surgery. Call your doctor if: * Temperature above 101 degrees F. * Pain not relieved by pain medicine ordered. * Increased drainage or redness from incision. * Notify your doctor with any questions or concerns. Keep the knee immobilizer on when you are out of bed today and tomorrow. It can be discontinued entirely on Sunday morning Ice and elevate the knee frequently to reduce pain and swelling Use your walker for ambulation Take Eliquis 2.5 mg twice a day for 2 weeks, and then resume your normal 5 mg dose twice per day Follow-up on [facility] as scheduled for staple removal MEDICATIONS: * Please take your prescriptions as instructed at your pre-op appointment and/or see medication discharge instructions listed above. * If concerns develop, call your physician's office at . SPECIAL CARE INSTRUCTIONS: * Ice/Elevate as instructed. * Keep dressing clean, dry, intact. * Your surgical extremity may be discolored due to prepping agents used on the skin. A bluish-green tint is a normal variant and should not cause alarm. Call your doctor at [phone] if: * Temperature above 101 degrees * Pain not relieved by pain medicine ordered * There is increased drainage or redness from any incision * You have any unanswered questions, problems or concerns. FOLLOW UP VISIT: * If not already scheduled, please call the office at to schedule a follow-up appointment. Stand-Alone Forms: [facility] Medications and DC Order Prescriptions: No Action sotalol 160 mg Tablet 80 mg PO BID atorvastatin [Lipitor] 10 mg Tablet 10 mg PO HS aspirin 81 mg Tablet,Delayed Release (Dr/Ec) 81 mg PO QAM Eliquis 5 mg Tablet 5 mg PO BID cyanocobalamin (vitamin B-12) [Vitamin B-12] 500 mcg Tablet 1,000 mcg PO QAM polyethylene glycol 3350 [Miralax] 17 gram/dose Powder 17 g PO BID Fish Oil Capsule 3 cap PO DAILY Glucosamine Chondroitin 550-30-1 mg Capsule 2 cap PO DAILY Admission Data Admit Date/Time: 05/13/25 09:00 Attending Provider: Maykel Muse Admit Provider: Maykel Muse Primary Care Provider: Mendez Brady
--- NOTE | 2025-05-13 08:36 | Orthopedic Progress Note ---
Date of Service May 13, 2025 Orthopedic Progress Note Underwent cemented left total knee replacement tolerated well. At this point time is vital signs are stable he is afebrile. Neurovascular check pending. X- ray pending. Family contacted.
--- NOTE | 2025-05-13 08:49 | Operative Report ---
Post Operative Report Pre & Post Diagnosis Operation Date: 05/13/25 07:00 Pre-Op Diagnosis: Left Knee Degenerative Disease Post-Op Diagnosis: Left Knee Degenerative Disease I identified the patient and participated in the time-out.: Yes Procedure Operation Date: 05/13/25 07:00 Actual Procedures p Left Total Knee Arthroplasty(Left) - Maykel Muse MD Surgeon CYRUS Muse MD [employer] Supervisor [facility] PAC no resident or fellow available Estimated Blood Loss 25 Findings Consistent with Post-Op Diagnosis see operative report Specimens see operative report Drains none Complications none Disposition Accompanied Patient To Recovery: Yes Indications This 69 year old male presented to the office with complaints of persisting left knee pain. He had tried conservative care measures without improvement. He elected to proceed with surgical invention after being educated about potential risks and outcomes. Preoperative imaging was obtained. Description of Procedure The patient was administered a regional block and then taken to the operating room where he was given general anesthesia. He was prepped and draped in the usual sterile fashion. Please see Dr. Muse's operative report for specifics of the procedure. I was present for the entire case from initial patient positioning through final wound closure. Assistance was provided in tissue retraction, hemostasis, trial implant placement, final implant placement, and final wound closure. The patient was taken to the recovery room in satisfactory condition. I attest to the content of the Intraoperative Record and any orders documented therein. Any exceptions are noted below.
--- NOTE | 2025-05-13 08:59 | Orthopedic Progress Note ---
Date of Service May 13, 2025 Orthopedic Progress Note Patient is awake alert in the recovery room moves all extremities neurovascular check from sciatic nerve is normal. Wound dressing clean dry and intact. Postop x-ray AP and lateral looks excellent. Assessment status post left knee replacement continue care pathway Early mobilization case management assessment and prepare for discharge tomorrow AM.
[2025-05-13] MEDS ORDERED: VANCOMYCIN CONSULT ACTIVE PRN (09:00)
[2025-05-13] MEDS ORDERED: ATROPINE SULFATE 0.1 MG/ML 10ML SYR IV PRN (09:12)
[2025-05-13] MEDS ORDERED: ONDANSETRON INJ 2 MG/ML 2 ML VIAL IV PRN ×2 (09:12→10:04)
[2025-05-13] MEDS ORDERED: PROMETHAZINE HCL 6.25 MG in SODIUM CHLORIDE 0.9% 50 ML IV PRN (09:12)
[2025-05-13] MEDS ORDERED: HYDROmorphone INJ 2 MG/ML SYR/VIAL IV PRN (09:12)
--- NOTE | 2025-05-13 09:13 | XRay Report ---
XR knee LT 1 or 2V routine CLINICAL HISTORY: S/P L TKA COMPARISON: Left knee radiographs April 17, 2025. FINDINGS: Alignment of the total left knee arthroplasty is anatomic. There is no periprosthetic frac ture or unexpected radiopaque foreign body. There are skin nanci. IMPRESSION: Expected findings following total left knee arthroplasty. ACT 112: Negative or not required by law. Electronically signed by: Nikhil Causey M.D. 05/13/2025 9:12 AM
[2025-05-13] MEDS: VANCOMYCIN HCL 1,500 MG in SODIUM CHLORIDE 0.9% 500 ML IV STA (09:20)
[2025-05-13] MEDS ORDERED: NALOXONE HCL 0.4 MG/1 ML VIAL/CARP IV PRN (10:04)
[2025-05-13] MEDS ORDERED: ALUMINUM/MAGNESIUM SUSP 30 ML UDC PO PRN (10:04)
[2025-05-13] MEDS ORDERED: TAMSULOSIN HCL 0.4 MG CAP PO PRN (10:04)
[2025-05-13] MEDS ORDERED: diphenhydrAMINE 50 MG/ML VIAL IV PRN (10:04)
[2025-05-13] MEDS ORDERED: METOCLOPRAMIDE HCL INJ 5 MG/ML 2 ML VIAL IV PRN (10:04)
[2025-05-13] MEDS ORDERED: MAGNESIUM HYDROXIDE SUSP 30 ML UDC PO PRN (10:04)
[2025-05-13] MEDS ORDERED: HYDROmorphone INJ 0.5 MG/0.5 ML SYR IV PRN (10:04)
[2025-05-13] MEDS: SODIUM CHLORIDE 0.9% 1,000 ML IV SCH (10:52)
--- NOTE | 2025-05-13 12:44 | Orthopedic Progress Note ---
Date of Service May 13, 2025 Assessment & Plan Admission and Anticipated Discharge Date Admission Date: May 13, 2025 Orthopedic Progress Note Postop check on the floor. He is sitting up in bed eating lunch. He denies nausea vomiting chest pain shortness of breath fever chills. Neurovascular check femoral sciatic nerve is normal. Wound dressing clean dry and intact. Can do straight leg raise can do ankle pumps. Postop x-rays look excellent. Assessment doing well. Eating and drinking well will saline lock IV fluid use for meds only. Get out of bed to start his exercises etc. He states he understands. Initiate anticoagulation tomorrow.
[2025-05-13] MEDS: ASPIRIN 81 MG ECTAB PO SCH (12:59)
[2025-05-13] MEDS: DOCUSATE SODIUM 100 MG CAP PO SCH (12:59)
[2025-05-13] MEDS: MULTIVITAMIN TAB PO SCH (12:59)
[2025-05-13] MEDS: KETOROLAC TROMETHAMINE 15 MG/ML VIAL IV SCH (12:59)
[2025-05-13] MEDS: ACETAMINOPHEN 500 MG TAB PO SCH (15:12)
[2025-05-13] MEDS: FERROUS GLUCONATE 324 MG TAB PO SCH (17:29)
[2025-05-13] MEDS: ASCORBIC ACID 500 MG TAB PO SCH (17:29)
[2025-05-13] MEDS: ATORVASTATIN 10 MG TAB PO SCH (20:05)
[2025-05-13] MEDS: SENNA 8.6 MG TAB PO SCH (20:05)
[2025-05-13] MEDS: SOTALOL HCL 80 MG TAB PO SCH (20:05)
[2025-05-14 03:17] VITALS: TEMP 97.7
[2025-05-14 07:15] LABS: Hematocrit (blood only) 36.6 % (42.0-52.0); Hemoglobin 12.8 g/dL (14.0-18.0); Mean Corpuscular Hemoglobin 31.9 pg (25.0-34.0); Mean Corpuscular Volume 91.3 fL (80.0-100.0); Platelet Count 174 K/uL (130-400); RDW Standard Deviation 41.6 fL (36.4-46.3); Red Blood Count 4.01 M/uL (4.70-6.10); White Blood Count 10.96 K/ul (4.8-10.8)
--- NOTE | 2025-05-14 07:16 | Orthopedic Progress Note ---
Date of Service May 14, 2025 Assessment & Plan Admission and Anticipated Discharge Date Admission Date: May 13, 2025 Orthopedic Progress Note Postop day #1 status post left total knee replacement. Doing well. Denies chest pain shortness of breath fever chills nausea vomiting or headache. Vital signs are stable he is afebrile. Neurovascular check femoral sciatic nerve is normal. Morning hematocrit is 36. Assessment doing well plan is to discharge home today will have dressing change by PA prior to discharge. Initiate anticoagulation today. His dose will be 50% of normal for 2 weeks and then resume normal dose. Follow-up in 2 weeks.
[2025-05-14 08:13] LABS: Anion Gap 6.0 (3-11); Blood Urea Nitrogen 15.0 mg/dl (6-23); Calcium 8.6 mg/dl (8.6-10.3); Carbon Dioxide 27.0 mmol/L (21-32); Chloride 104.0 mmol/L (98-107); Creatinine Clr Calc Pharmacy 92.7 ml/min; Glucose 101.0 mg/dl (70-99(Fasting)); Potassium 4.0 mmol/L (3.5-5.1); Sodium 137.0 mmol/L (136-145)
[2025-05-14 08:17] VITALS: BP 105/66; PULSE 54; RESP 16; O2SAT 97
[2025-05-14] MEDS: APIXABAN 2.5 MG TAB PO SCH (08:21)
[2025-05-14] MEDS: dexAMETHasone 10 MG in SYRINGE 0 ML IV SCH (08:22)
--- NOTE | 2025-05-14 10:11 | Orthopedic Progress Note ---
Date of Service May 14, 2025 Assessment & Plan (1) Status post left knee replacement: Plan: Dressing change completed this morning. Patient continues to do well - comfortable being discharged home today. Has home health/home PT scheduled with [facility]. He understands taking eliquis 2.5 mg twice daily for first 2 weeks, then resuming full strength dose. He prefers to cut his 5 mg tabs in half. Advised if he has having difficulty with this, contact us and we will prescribe the 2.5 mg tabs for 2 weeks. Understands knee immobilizer today and tomorrow, then can discontinue in 2 days on Sunday. Use of walker reviewed. Ice and elevate MIK stockings reviewed Has follow up scheduled in our office 2 weeks from now Will contact clinic with any questions or concerns in the interim. Admission and Anticipated Discharge Date Admission Date: May 13, 2025
== END 2025-05-14 12:09 | disposition home health service (06) | DRG 470 ==
LOC: ASU 05:25 → 3N 05:25 → OBSVTOIN 09:00